=== PATIENT | female | born 1940 | race Caucasian/White ===

== ENCOUNTER → 2016-07-04 | Outpatient (CLI) | payer BC, OTHER ==
[~2016-07-04] MED LIST: AMLOD-VALSA-HC1 EAC4 PO; AMOXICILLIN875 MG PO; ATORVASTATIN CA20 MG PO; BREO ELLIPTA 11 EACH INH; CALCIUM 500-VI1 EACH PO; DULOXETINE HCL60 M1 PO; ENBREL50 MG/1 M1 SUBQ; FOLIC ACID1 MG PO; OMEPRAZOLE40 M1 PO; OXYGEN; PERCOCET 5/321 UDTAB PO; STERAPRED5 MG/DOSE1 PO; WELLBUTRIN XL150 M2 PO; XARELTO10 MG PO
--- NOTE | ~2016-07-04 | EKG ---
PATIENT: ALISSA LANDA UNIT #: [id number] Ventricular Rate: 62 BPM Atrial Rate: 62 BPM P-R Interval: 112 ms QRS Duration: 88 ms Q-T Interval: 436 ms QTC Calculation(Bezet): 442 ms P [place]: 76 degrees Calculated R [place]: 22 degrees Calculated T [place]: 65 degrees Diagnosis Line: Normal sinus rhythm Diagnosis Line: Normal ECG Diagnosis Line: No previous ECGs available Diagnosis Line: Confirmed by LORENA GODDARD MD ([id number]) on 07/06/2016 Diagnosis Line: 9:14:14 AM INTERPRETING MD: RUPESH BAILEY
[2016-07-04 16:11] LABS: BLOOD UREA NITROGEN 12 mg/dL (9-23); BUN/CREATININE RATIO 17.14; CARBON DIOXIDE 29 mmol/L (22-31); CHLORIDE 97 mmol/L (100-111); CREATININE SERUM 0.7 mg/dL (0.6-1.4); GLOM FILT RATE Estimated ABOVE60 mL/min (>60); GLUCOSE FASTING 98 mg/dL (70-110); POTASSIUM 3.3 mmol/L (3.5-5.1); SODIUM 133 mmol/L (135-145)
== END | disposition home or self-care (01) ==
LOC: CAMB 13:59
PROVIDERS: Orthopaedic Surgery
DX: Z01.818 Encounter for other preprocedural examination (principal); M06.871 Other specified rheumatoid arthritis, right ankle and foot; S92.811K Other fracture of right foot, subsequent encounter for fracture with nonunion; S93.12 Dislocation of metatarsophalangeal joint; J44.9 Chronic obstructive pulmonary disease, unspecified
CPT/HCPCS: 36415; 80048; 93005

== ENCOUNTER 2016-07-18 09:04 | Inpatient (IN) | payer BC, OTHER ==
--- NOTE | ~2016-07-18 | HP ---
Unit #: [id number] #: [id number] Patient: ALISSA LANDA [id number] [address] [address] [id number] P MR#: [id number] NAME: ALISSA LANDA ROOM: Age: 75 Sex: F Admission Date: 07/18/2016 : 1940 Attending Physician: Ivette Caicedo M.D. HISTORY AND PHYSICAL CHIEF COMPLAINT Right foot pain. HISTORY OF PRESENT ILLNESS The patient is a 75-year-old female with rheumatoid arthritis. She has had numerous operative procedures on her foot. She has prominence of the plantar medial arch under her medial cuneiform. She has pain with standing and walking. She has been using custom orthotics to help her with some of the pressure, which is only marginally successful. She also complains of pain under the first metatarsal head. She takes Enbrel for rheumatoid arthritis. Her radiographs show that she has a first metatarsal shaft nonunion as well as a severe pes planus deformity with significant clawing of the toes. The patient is admitted for triple arthrodesis first MTP joint fusion, resection of second through fourth metatarsal heads, correction of second through fifth claw toes and repair of her first metatarsal nonunion. PAST MEDICAL HISTORY 1. Rheumatoid arthritis. 2. Gastroesophageal reflux disease. 3. Hypertension. 4. Hypercholesterolemia. 5. Chronic obstructive pulmonary disease. PAST SURGICAL HISTORY Multiple foot surgeries. SOCIAL HISTORY The patient is a nonsmoker and nondrinker. She does not use illicit drugs. She works at [employer]. ALLERGIES No known drug allergies. HOME MEDICATIONS 1. Enbrel. 2. Folate. 3. Omeprazole. 4. HCTZ. 5. Amlodipine. 6. Valsartan. 7. Atorvastatin. 8. Duloxetine. 9. Bupropion. Unit #: [id number] #: [id number] Patient: ALISSA LANDA 10. Calcium citrate. 11. Breo. REVIEW OF SYSTEMS Unremarkable. PHYSICAL EXAMINATION GENERAL: The patient is a well-developed, well-nourished female in no acute distress. HEENT: Pharynx is clear. NECK: Supple without masses. LUNGS: Clear. HEART: Regular sinus rhythm without murmurs or gallops. ABDOMEN: Soft and nontender without masses or organomegaly. EXTREMITIES: Evaluation of the right foot demonstrates flattening of the arch. She has (1)____ abduction and hindfoot valgus of 20 degrees. Ankle dorsiflexion is 20 degrees, plantar flexion 40 disease, subtalar inversion 20, eversion 20, first MTP joint dorsiflexion 30, plantar flexion 0. The patient has a plantar keratosis underlying the medial cuneiform. She also has a plantar keratosis under the fourth metatarsal head plantarly as well as under the third metatarsal head. She has fixed clawing of the second through fifth toes and clawing of the hallux. Sensation is intact. Pulses are normal. Motor exam is normal. DIAGNOSTIC STUDIES IMAGING: Plain x-rays of the right foot show a first metatarsal shaft nonunion with shortening and presence of what appears to be a wire. She has significant erosions of the first through fifth metatarsal phalangeal joints with fixed rotations of the third and fourth metatarsal phalangeal joints and erosion of the fifth metatarsal head. She has 50% uncovering of the talonavicular joint. Meary's angle is -30 degrees, calcaneal pitch 13 degrees, medial cuneiform height -6 mm. ASSESSMENT 1. 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 2. Right first metatarsal nonunion. 3. Right first metatarsal intractable plantar keratosis. 4. 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 5. Right third and fourth metatarsal phalangeal joint dislocation. PLAN The patient has failed conservative care. She will, therefore, undergo right foot surgery. This will entail a triple arthrodesis, repair of the first metatarsal nonunion, first metatarsal phalangeal joint fusion, resection second through fourth metatarsal heads, repair of second through fifth claw toes. We will utilize Augment bone graft. The procedure was described along with the risks of bleeding, infection, nerve damage, need for further surgery in the future, prolonged recovery time, deep venous thrombosis, pulmonary embolism, anesthetic complications, nonunion, malunion, persistent swelling. The patient understands she will have to be nonweightbearing for three months postoperatively. Dictated by Ivette Caicedo M.D. Unit #: [id number] #: [id number] Patient: ALISSA LANDA RTH/gz TD: 07/13/2016 09:15 JOB #: [id number] CC: Ivette Caicedo M.D. HISTORY AND PHYSICAL Page 1 of 1 X Guerda Caicedo MD X HISTORY AND PHYSICAL
--- NOTE | ~2016-07-18 | CO ---
Unit #: [id number] #: [id number] Patient: ALISSA LANDA [id number] [address] [place], [place] [address] [id number] I MR#: [id number] NAME: ALISSA LANDA ROOM: [facility] Age: 75 Sex: F Admission Date: 07/18/2016 : 1940 Attending Physician: Ivette Caicedo M.D. Primary Care Physician: Janice Bal M.D. Consultation Date: 07/19/2016 CONSULTATION REPORT CONSULTING PHYSICIAN Dr. Caicedo REASON FOR CONSULT Medical management. HISTORY OF PRESENT ILLNESS Pleasant 75-year-old female with a history of rheumatoid arthritis, COPD, who follows with Dr. Godinez at [facility]. He usually wears 2 L of oxygen at night at home. Basically, he is status post arthrodesis of the right foot per Dr. Caicedo. Sometime this morning, she was somewhat hypoxic and she was given some Narcan and a chest x-ray was obtained. The patient denies any complaints at this time. was at bedside. She seems to be doing much better at this time. She is complaining of some pain in her right foot ever since she got the Narcan but, other than that, no other issues so far. REVIEW OF SYSTEMS She denies any chest pain, denies any shortness of breath per sedimentation rate but admits to pain in her right foot. PAST MEDICAL HISTORY Significant for: 1. Rheumatoid arthritis. 2. Gastroesophageal reflux disease. 3. Hypertension. 4. Hyperlipidemia. 5. COPD. PAST SURGICAL HISTORY Multiple foot surgeries in the past. SOCIAL HISTORY No tobacco use, alcohol use or illicit drug use. ALLERGIES No known drug allergies. MEDICATIONS Medications include: 1. Enbrel 50 mg subcu q. weekly. 2. Folic acid 1 mg p.o. daily. 3. Omeprazole 40 mg p.o. daily. 4. Lipitor 20 mg p.o. daily. Unit #: [id number] #: [id number] Patient: ALISSA LANDA 5. Cymbalta 60 mg p.o. daily. 6. Wellbutrin XL 150 mg p.o. daily. 7. Calcium plus D, one tablet p.o. daily. 8. Breo Ellipta 100/25, one puff inhalational twice daily. 9. Amlodipine/valsartan/hydrochlorothiazide 10/320/25, one cap p.o. daily. 10. Oxygen 2.5 L at bedtime. REVIEW OF SYSTEMS Complete ten point review of systems has been done and pertinent positives noted above in the HPI. PHYSICAL EXAMINATION GENERAL APPEARANCE: The patient is drowsy, comfortable, drifts off to sleep but easily arousable. VITAL SIGNS: Sats are 93% on about 3 L, temperature 99.0, pulse 82, respiratory rate 16, blood pressure 128/74. HEENT: Pupils were equal and reactive to light and accommodation. NECK: Supple without thyromegaly. CHEST: Mostly clear. ABDOMEN: Full, moved with respirations. Soft, nontender, nondistended. No palpable organomegaly. EXTREMITIES: Right foot dressing in place. SKIN: Warm and dry with no rashes. LYMPHATIC SYSTEM: No enlarged peripheral lymphadenopathy that I could appreciate. ASSESSMENT AND PLAN 1. Chronic obstructive pulmonary disease: This is currently stable at this time. Her episode of desaturation is probably secondary to narcotics. The patient was on a [employer] pump and this has been stopped at this time. 2. Pain management: The patient is currently being managed by Dr. Caicedo. Per my discussion with him, will continue with Percocet orally for pain as needed. She will continue to be on oxygen at this time. In light of her episode of desaturation, I would just get a set of cardiac markers. 3. Hyperlipidemia: Continue medications at this time as well as hypertension. Keep an eye on patient's blood pressure at this time. 4. Status post arthrodesis: Management as per Dr. Caicedo. Will check a CBC, BMP and set of cardiac markers. Dr. Caicedo, thanks for the opportunity to participate in the care of your patient. The patient will be on DVT prophylaxis and GI prophylaxis. Dictated by... Jian Ahumada TD: 07/19/2016 09:19 JOB #: [id number] Unit #: [id number] #: [id number] Patient: ALISSA LANDA CONSULTATION REPORT Page 1 of 1 X Josiah Diaz MD CONSULTATION REPORT
--- NOTE | ~2016-07-18 | CR71 ---
[facility] A Service of [facility] & [facility] RADIOLOGY TEXT RESULTS PATIENT: ALISSA LANDA LOCATION: [place] [address] : [birth year] UNIT #: [id number] AGE: [address]: Guerda Caicedo MD SEX: F ORDER DR: [id number] [facility] [address] [facility]. [place], [place] [address] [id number] I MR#: [id number] Acc #: [id number] NAME: ALISSA LANDA : 1940 SEX: F STUDY DATE/TIME: 07/20/2016 14:50 UNIT: [facility] ROOM: [facility] STUDY DESCRIPTION: CR Chest Single View Attending Physician: Ivette Caicedo M.D. Ordering Physician: Jorge Royal M.D. Primary Care Physician: Janice Bal M.D. MEDICAL IMAGING REPORT This report is preliminary unless electronic signature is present EXAM Chest x-ray, 07/20. HISTORY Shortness of air and cough today. History of hypertension. FINDINGS AP portable chest compared with 07/19/2016. Heart size stable. Minimal atelectasis or infiltrate in both lung bases today. There is emphysema. Lungs are otherwise clear and there no pneumothorax. There is an old right clavicle fracture. Dictated by... Ten Maloney Jr., M.D. THIS IS AN ELECTRONICALLY VERIFIED REPORT Ten Maloney Jr., M.D. at 07/21/2016 8:47 PM HANS/susie TD: 07/20/2016 16:55 JOB #: [id number] MEDICAL IMAGING REPORT Page 1 of 1 COPY
--- NOTE | ~2016-07-18 | DS ---
Unit #: [id number] #: [id number] Patient: ALISSA LANDA [id number] [address] [place], [place] [address] [id number] I MR#: [id number] NAME: ALISSA LANDA ROOM: [facility] Age: 75 Sex: F Admission Date: 07/18/2016 : 1940 Discharge Date: 07/22/2016 Attending Physician: Ivette Caicedo M.D. Primary Care Physician: Janice Bal M.D. DISCHARGE SUMMARY CHIEF COMPLAINT Right foot pain. HISTORY OF PRESENT ILLNESS This 75-year-old female with history of rheumatoid arthritis has had numerous operative procedures on her foot. She now complains of significant pain with walking and standing. She has not responded to conservative care. She has a nonunion of the first metatarsal shaft as well as significant pes planus deformity and clawing of her toes. She has erosions of the metatarsal heads and has symptomatic plantar keratosis. She is, therefore, to undergo triple arthrodesis, repair of first metatarsal nonunion, first MTP joint fusion and resection of metatarsal heads with correction of claw toes. HOSPITAL COURSE The patient was taken to the operating room on the date of admission where she underwent the above-mentioned procedures. There were no operative complications. Postoperatively, she had an exacerbation of her underlying chronic obstructive pulmonary disease. This required pulmonary consultation and IV steroids. She was also seen by Urology for urinary retention and she improved with observation only. Dressing was changed on the second postoperative day. Wounds were healing well. She remained afebrile with otherwise stable vital signs. She was seen by Physical Therapy on a daily basis and instructed on how to remain nonweightbearing on her right side. Pain was controlled with oral narcotics. She was ready for discharge on the fourth postoperative day after her COPD exacerbation improved. FINAL DIAGNOSES 1. Right foot rheumatoid arthritis. 2. Chronic obstructive pulmonary disease. 3. Urinary retention, resolved. DISPOSITION AND RECOMMENDATIONS 1. The patient is discharged home. She will remain nonweightbearing on the right foot for a total of three months. She will keep the dressing, clean, dry and intact and will continue ice and elevation. 2. Discharge medications remain the same as her home medications with the addition of Xarelto 10 mg p.o. daily for a total of two weeks postoperatively as well as Percocet 5/325 mg one or two p.o. q.4-6 hours p.r.n. Dispense 50. 3. Follow up in my office in 10 to 14 days for dressing change, suture removal, application of a cast. Pins will be left in place for four weeks. Unit #: [id number] #: [id number] Patient: ALISSA LANDA Dictated by.Jian Dobson/magy TD: 07/24/2016 06:34 JOB #: [id number] DISCHARGE SUMMARY Page 1 of 1 X Guerda Caicedo MD X DISCHARGE SUMMARY
--- NOTE | ~2016-07-18 | CR72 ---
[facility] A Service of [facility] & [facility] RADIOLOGY TEXT RESULTS PATIENT: ALISSA LANDA LOCATION: [address] 451[address]01 : [birth year] UNIT #: [id number] AGE: [address]: Guerda Caicedo MD SEX: F ORDER DR: [id number] [facility] [address] [place], [place] [address] [id number] I MR#: [id number] Acc #: [id number] NAME: ALISSA LANDA : 1940 SEX: F STUDY DATE/TIME: 07/19/2016 6:51 UNIT: [facility] ROOM: [facility] STUDY DESCRIPTION: CR Chest Single View Portable Attending Physician: Ivette Caicedo M.D. Ordering Physician: Ivette Caicedo M.D. Primary Care Physician: Janice Bal M.D. MEDICAL IMAGING REPORT This report is preliminary unless electronic signature is present EXAM Portable chest 07/19 INDICATIONS Shortness of air, hypoxia now. History of COPD and hypertension. FINDINGS AP portable chest compared with 07/04/2016. Cardiac and mediastinal contours are normal. There is emphysema. Atherosclerotic disease in the aorta. No pneumothorax. There is some mild infiltrate or atelectasis in the right lung base. Lungs are otherwise clear. IMPRESSION Emphysema with very mild right basilar infiltrate or atelectasis. Chest x-ray is otherwise negative and unchanged. Dictated by... Ten Maloney Jr., M.D. THIS IS AN ELECTRONICALLY VERIFIED REPORT Ten Maloney Jr., M.D. at 07/19/2016 3:53 PM HANS/terri TD: 07/19/2016 07:40 JOB #: [id number] MEDICAL IMAGING REPORT Page 1 of 1 COPY
--- NOTE | ~2016-07-18 | CR63 ---
[facility] A Service of [facility] & [facility] RADIOLOGY TEXT RESULTS PATIENT: ALISSA LANDA LOCATION: [facility] : [birth year] UNIT #: [id number] AGE: [address]: Guerda Caicedo MD SEX: F ORDER DR: [id number] [facility] [address] [place], [place] [address] [id number] MR#: [id number] Acc #: [id number] NAME: ALISSA LANDA : 1940 SEX: F STUDY DATE/TIME: 07/04/2016 15:22 UNIT: [facility] ROOM: STUDY DESCRIPTION: CR Chest 2 View Attending Physician: Ivette Caicedo M.D. Ordering Physician: Ivette Caicedo M.D. MEDICAL IMAGING REPORT This report is preliminary unless electronic signature is present EXAM Chest x-ray 07/04/2016 INDICATION Preop exam for foot surgery. Cough for a few days. Anesthesia requirement. Former smoker. FINDINGS 2 views of the chest were obtained. No comparison. Cardiac and mediastinal contours are normal. There is atherosclerotic disease in the aorta. The lungs are emphysematous but clear. No pneumothorax. There is an old right clavicle fracture. IMPRESSION Emphysema. No active disease. Dictated by... Ten Maloney Jr., M.D. THIS IS AN ELECTRONICALLY VERIFIED REPORT Ten Maloney Jr., M.D. at 07/05/2016 1:41 PM HANS/christa TD: 07/05/2016 10:05 JOB #: [id number] MEDICAL IMAGING REPORT Page 1 of 1 COPY
--- NOTE | ~2016-07-18 | OR ---
Unit #: [id number] #: [id number] Patient: ALISSA LANDA [id number] [address] [place], [place] [address] [id number] MR#: [id number] NAME: ALISSA LANDA ROOM: [facility] Date of Procedure: 07/18/2016 Admission Date: 07/18/2016 Surgeon: Ivette Caicedo M.D. : 1940 Attending Physician: Ivette Caicedo M.D. Primary Care Physician: Janice Bal M.D. OPERATIVE REPORT PREOPERATIVE DIAGNOSES 1. Right foot rheumatoid pes abducto planovalgus. 2. Right second through fifth claw toes. 3. Right second and third metatarsophalangeal joint dorsal dislocations. 4. 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 5. Right first metatarsophalangeal joint rheumatoid arthritis. POSTOPERATIVE DIAGNOSES 1. Right foot rheumatoid pes abducto planovalgus. 2. Right second through fifth claw toes. 3. Right second and third metatarsophalangeal joint dorsal dislocations. 4. 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 5. Right first metatarsophalangeal joint rheumatoid arthritis. PROCEDURES PERFORMED 1. Right foot triple arthrodesis (37260). 2. Right second, third, and fourth metatarsal head resections (20083). 3. Right first metatarsal nonunion repair with autogenous bone graft (16989). 4. Right first metatarsophalangeal joint fusion (32841). 5. Right second through fifth claw toe corrections with proximal interphalangeal joint fusion and pinning of toes in corrected position (64270). 6. Right tibial sesamoidectomy (38901). 7. Right foot hardware removal (61227). ASSISTANTS Geovanna and Francisco. ANESTHESIA Popliteal saphenous block and general. INDICATIONS FOR SURGERY A 74-year-old female with rheumatoid arthritis, who presents with a symptomatic pes abducto planovalgus deformity secondary to rheumatoid arthritis. She has significant forefoot arthritis with dislocations of the third and fourth metatarsophalangeal joints. She has fixed claw toe deformities of all toes. She has significant arthritis of the first MTP joint with hallux valgus. She has undergone previous attempted right first MTP joint surgery with resultant nonunion and retained hardware. The patient has symptomatic plantar keratosis in the forefoot as well as Unit #: [id number] #: [id number] Patient: CORDELL,ALISSA significant pain in the hindfoot with walking and standing. She also has pain under the prominent medial cuneiform plantarly. The patient has failed nonoperative care with orthotics, bracing, medications, modification of activity. She desires surgical correction. She has failed nonoperative care. DESCRIPTION OF PROCEDURE The patient was taken to the operating room and placed in supine position and general anesthetic was induced. Popliteal saphenous block was performed preoperatively in the anesthesia holding area. The right foot was identified as the correct operative extremity during the time-out procedure. The IV antibiotic protocol was followed. The right foot and leg were then prepped and draped in the usual sterile fashion. The leg was exsanguinated and the thigh tourniquet was inflated to 300 mmHg. A longitudinal incision was made over the sinus tarsi ending at the fourth metatarsal base. Subcutaneous tissue was carefully divided. The subtalar joint was exposed with subperiosteal dissection. The contents of the sinus tarsi were excised. The joint was distracted with a laminar heel emery buffer. The power osteotome, curved curettes, and rongeurs were utilized to remove the articular cartilage from both sides of the subtalar joint. The underlying subchondral bone was feathered. All three facets were dressed. The FHL tendon was identified and preserved. The calcaneocuboid joint was exposed with subperiosteal dissection. The articular cartilage was removed from both sides of this joint using a power osteotome, curved curettes, and rongeurs. The underlying subchondral bone was feathered with the power osteotome. A 6 cm dorsal medial incision was made over the midfoot. Subcutaneous tissue was divided. The talonavicular joint capsule was opened. The talonavicular joint was identified. The power osteotome, curved curettes, and rongeurs were then utilized to remove the articular cartilage from both sides of the joint. The underlying subchondral bone was feathered with the power osteotome. 3 mL of Augmented Pixels CO augment platelet-derived growth factor. Calcium phosphate granules were then placed and divided equally between the three joints. Care was taken to spread the growth factor evenly. The subtalar joint was then held in corrected position and then fixated with a 7.0 mm diameter partially threaded cannulated screw from OrthoHelix placed from the posterior inferior heel into the talar neck. The talonavicular joint was then reduced and fixated from distal to proximal with a 5.5 mm diameter cannulated OrthoHelix screw. The calcaneocuboid joint was then fixated with a distal to proximal 5.5 mm diameter cannulated OrthoHelix screw. Excellent correction was achieved and documented by x-ray. A dorsal longitudinal incision was made over the third metatarsophalangeal joint and shaft. The subcutaneous tissue was divided. The third metatarsophalangeal joint was exposed and the third metatarsal head was identified and presented into the wound utilizing baby Hohmann retractors. The microsagittal saw was then used to cut the eroded third metatarsal head. This was removed to be saved for bone graft later in the case. In a similar fashion, the second and fourth metatarsal heads were exposed. The microsagittal saw was used to cut the second and fourth metatarsal necks. The second and fourth metatarsal heads were then removed. Dorsal, transverse, elliptical incisions were then made over the second, third, and fifth toes. The microsagittal saw was used to remove the Unit #: [id number] #: [id number] Patient: ALISSA LANDA distal 3 mm of bone and cartilage from the proximal phalanges and a rongeur was used to remove the articular cartilage from the bases of the middle phalanges. A longitudinal incision was made over the fourth toe proximal interphalangeal joint, because there was a significant deformity and malunion of the distal end of the proximal phalanx. The microsagittal saw was then used to remove the articular cartilage from the distal end of the fourth toe proximal phalanx. The articular cartilage of the middle phalangeal base was removed with the rongeur. 0.054 K-wires were then drilled through the middle of the middle phalanges of the second through fifth toes and out of the tips of the toes. The pins were then reversed across the proximal interphalangeal joint and then guided carefully into intramedullary canals of the second through fifth metatarsals. Excellent stabilization was achieved. Jurgan balls were placed and the pins were cut to appropriate length. The old scar over the dorsal medial hallux was utilized for the first MTP joint fusion. This was opened approximately 7 cm. The subcutaneous tissue was divided. The first metatarsophalangeal joint capsule was divided longitudinally and reflected off the first metatarsal head and proximal phalangeal base. The nonunion was then identified and the microsagittal saw was used to freshen both sides of the nonunion site. All fibrinous material was removed. The K-wire was then used to drill both sides of the nonunion site. The microsagittal saw was used to remove the articular cartilage from the first metatarsal head. The subchondral bone of the first metatarsal head was drilled multiple times with a K-wire. The K-wire was then used to drill around the periphery of the proximal phalangeal base. These holes were connected with a small osteotome and the articular cartilaginous surface was lifted away. The attached cancellous subchondral bone was removed with a rongeur and then morselized to be utilized for bone graft for the nonunion site. The nonunion site was then bone grafted and the first MTP joint and nonunion site were provisionally fixated with two crossed K-wires. Intraoperative C-arm fluoroscopy and simulated weightbearing showed satisfactory toe position. An OrthoHelix Mini MaxTorque screw was placed from distal to proximal beginning at the medial aspect of the proximal phalangeal base and this was advanced across the first MTP joint into the first metatarsal head across the nonunion site of the purchase the first metatarsal midshaft. A long OrthoHelix plate was then applied dorsally and fixated with multiple 2.7 mm diameter nonlocking screws. Three screws were placed in the proximal phalanx and three screws were placed in the first metatarsal shaft. Excellent fixation was achieved. The tourniquet was released with total tourniquet time of 2 hours and 20 minutes. Bleeding was controlled with electrocautery. The first MTP joint capsule was closed with 2-0 Vicryl [id number] sutures. Subcutaneous tissue was closed with 3-0 Vicryl. Skin was closed with 3-0 nylon horizontal mattress sutures. Xeroform gauze, dressing, sponges, Webril, posterior fiberglass splint, and Daniel wraps were applied. The patient was then transported to the recovery room in stable condition. ESTIMATED BLOOD LOSS 100 mL. COMPLICATIONS Unit #: [id number] #: [id number] Patient: ALISSA LANDA None. SPECIMENS None. TOURNIQUET TIME 2 hours 20 minutes. Dictated by.Jian Dobson/peterson TD: 07/19/2016 03:14 JOB #: [id number] OPERATIVE REPORT Page 1 of 1 X Guerda Caicedo MD X PROCEDURE OPERATIVE NOTE
--- NOTE | ~2016-07-18 | CO ---
Unit #: [id number] #: [id number] Patient: ALISSA AGUAYO [id number] [facility]. [place], [place] [address] [id number] I MR#: [id number] NAME: ALISSA AGUAYO ROOM: [facility] Age: 75 Sex: F Admission Date: 07/18/2016 : 1940 Attending Physician: Ivette Caicedo M.D. Primary Care Physician: Janice Bal M.D. CONSULTATION REPORT HISTORY OF PRESENT ILLNESS Ms. Aguayo is a 75-year-old white female followed by Dr. Godinez at [facility] for COPD and chronic respiratory failure. She underwent foot surgery here on 07/18/[address] Caicedo. She developed some hypoxemia through the night. They turned off her pain pump and gave her some Narcan with improvement in oxygenation. Chest x-ray was done which showed a new area of infiltrate or atelectasis in the right base. She said she had a cough with some congestion preoperatively but was treated with steroids and antibiotic with a little improvement. She has not been febrile. She is not coughing up much in the way of sputum. She denies any chest pain. She has no history of venous thromboembolism. I believe she is getting Xarelto for DVT prophylaxis. PAST MEDICAL HISTORY Significant for: 1. COPD. 2. Chronic respiratory failure maintained on approximately 2.5 liters. 3. History of rheumatoid arthritis. 4. No known history of interstitial lung disease. 5. History of gastroesophageal reflux. 6. Hypertension. 7. Hyperlipidemia. PAST SURGICAL HISTORY Multiple foot surgeries. HOME MEDICATIONS 1. Enbrel. 2. Folic acid. 3. Prilosec. 4. Lipitor. 5. Cymbalta. 6. Wellbutrin. 7. Calcium plus D. 8. Advair. 9. Norvasc, valsartan, hydrochlorothiazide 10/320/25. 10. Home O2 at 2.5 liters. ALLERGIES No known drug allergies. SOCIAL HISTORY No current tobacco use. No alcohol. No illicit drugs. Works at [employer]. Unit #: [id number] #: [id number] Patient: ALISSA AGUAYO REVIEW OF SYSTEMS Otherwise, negative. PHYSICAL EXAMINATION VITAL SIGNS: Blood pressure 102/60, pulse 77, respiratory rate 17, afebrile. GENERAL: White female, mildly short of breath, no distress. She is awake, alert, oriented x3. Moves all extremities symmetrically. HEENT: Normocephalic, atraumatic. Pupils equal, round, reactive. Sclerae anicteric. Nasal passages patent. Posterior pharynx clear. Mucous membranes are moist. NECK: Supple, trachea midline. No cervical or supraclavicular lymphadenopathy. LUNGS: Prolonged expiratory phase, mild expiratory wheeze with scattered expiratory rhonchi. HEART: Regular rate and rhythm. 2/6 systolic murmur. ABDOMEN: Nontender. Bowel sounds are present. EXTREMITIES: Without clubbing, cyanosis, or edema. Right leg and foot wrapped. SKIN: Warm and dry. PSYCHIATRIC: Affect calm. DIAGNOSTIC STUDIES LABORATORY: BMP reviewed. Sodium 133, creatinine 0.6, CO2 is 26. Cardiac enzymes were negative. White count 11,600, hematocrit 28.2. IMAGING: Chest x-ray personally reviewed, as noted. IMPRESSION 1. Acute and chronic hypoxemic respiratory failure. 2. Chronic obstructive pulmonary disease exacerbation. 3. Postop right foot. 4. Rheumatoid arthritis. 5. Right lower lobe atelectasis or infiltrate. PLAN 1. Would recommend intensifying bronchodilator and inhaled corticosteroid treatment with changing from Dulera to Perforomist and Pulmicort. Will continue short-acting bronchodilators with DuoNeb. 2. Will give brief steroid burst. 3. Will increase O2 to keep saturations greater than 90% and check arterial blood gases to rule out any hypercarbia. 4. Would recommend discontinuation of pain pump as this seems to be suppressing respirations and causing more hypoxia. 5. Will obtain repeat chest x-ray to see if there is a change in development of a pneumonia. Will initiate Rocephin empirically. 6. Will make further recommendations pending this. Dictated by... Jorge Royal M.D. Unit #: [id number] #: [id number] Patient: ALISSA AGUAYO ELVER/deandra TD: 07/20/2016 17:10 JOB #: [id number] CONSULTATION REPORT Page 1 of 1 X Jorge Royal MD CONSULTATION REPORT
--- NOTE | ~2016-07-18 | CO ---
Unit #: [id number] #: [id number] Patient: ALISSA LANDA [id number] [address] [place], [place] [address] [id number] I MR#: [id number] NAME: ALISSA LANDA ROOM: [facility] Age: 75 Sex: F Admission Date: 07/18/2016 : 1940 Attending Physician: Ivette Caicedo M.D. Primary Care Physician: Janice Bal M.D. Consultation Date: 07/20/2016 CONSULTATION REPORT REASON FOR CONSULTATION Postoperative voiding difficulty. HISTORY OF PRESENT ILLNESS This 75-year-old woman underwent extensive orthopedic surgery on her right foot. She was noted to be having severe voiding difficulty and near urinary retention this morning. She fortunately has improved throughout the day, initially on a straight catheterization regimen and is voiding 200 mL easily at the time. She has no remaining voiding symptoms. She earlier had hypoxia from her narcotics and this was likely a contributing factor as well as ongoing pain and other medications. She denies any prior urologic history or symptoms. She on close questioning has occasional hesitancy and slow emptying at night, but has no daytime symptoms. She has no history of urinary tract infection, gross hematuria, or stone disease. CLAIM CLERK HISTORY Pertinent for partial hysterectomy and oophorectomy for tumor prior to bearing her 3 children. PAST MEDICAL HISTORY Includes COPD, hypertension, hypercholesterolemia, GERD, and rheumatoid arthritis. PAST SURGICAL HISTORY Multiple foot surgeries. HOME MEDICATIONS Enbrel, folate, omeprazole, hydrochlorothiazide, amlodipine, valsartan, atorvastatin, duloxetine, bupropion, calcium, and Bero. She has Xarelto and Percocet for discharge. She has been started on Rocephin for pulmonary infiltrate. ALLERGIES None known. FAMILY HISTORY Noncontributory. SOCIAL HISTORY No current tobacco or alcohol use. Unit #: [id number] #: [id number] Patient: ALISSA LANDA REVIEW OF SYSTEMS Pertinent for the above. PHYSICAL EXAMINATION GENERAL: The patient is awake, alert with audible rales. ABDOMEN: Soft, nontender. Bladder mildly distended, but she says she is about to avoid. DIAGNOSTIC STUDIES LABORATORY RESULTS: Creatinine 0.6. IMPRESSION 1. Postoperative voiding symptoms multifactorial, resolved. 2. For home medications duloxetine may affect her voiding function. PLAN She is reassured. She will see me again on as needed. Thank you for the consult Dr. Rolon. Dictated by... Ten Camarena M.D. TIGRE/peterson TD: 07/21/2016 00:16 JOB #: [id number] CC: Jian Shrestha M.D. CONSULTATION REPORT Page 1 of 1 X Ten Camarena MD X CONSULTATION REPORT
[~2016-07-18 09:04] MED LIST changes: -PERCOCET 5/321 UDTAB PO; -XARELTO10 MG PO
[2016-07-19 03:02] LABS: HEMATOCRIT 32.4 % (35.0-45.0); HEMOGLOBIN 10.7 gm/dL (12.0-16.0)
[2016-07-19 09:28] LABS: HEMATOCRIT 32.6 % (35.0-45.0); HEMOGLOBIN 10.7 gm/dL (12.0-16.0); MEAN CELL VOLUME 85.9 FL (83-96); MEAN CORPUSCULAR HEMOGLOBIN 28.2 PG (28-34); MEAN CORPUSCULAR HGB CONC 32.8 g/dL (30-36); MEAN PLATELET VOLUME 8.6 FL (6.5-11.5); RED BLOOD COUNT 3.79 X10e (3.90-5.30); RED CELL DISTRIBUTION WIDTH 13.6 % (11.0-15.5); WHITE BLOOD COUNT 10.4 X10e3 (4.0-10.5)
[2016-07-19 10:11] LABS: BUN/CREATININE RATIO 16.66; CALCIUM SERUM 7.9 mg/dL (8.4-10.2); CREATININE SERUM 0.6 mg/dL (0.6-1.4); GLOM FILT RATE Estimated 89.8 mL/min (>60); POTASSIUM 3.1 mmol/L (3.5-5.1)
[2016-07-19 10:40] LABS: %MB 2.6 % (0.0-4.0); MB 5.3 ng/ml
[2016-07-20 02:37] LABS: HEMATOCRIT 28.2 % (35.0-45.0); HEMOGLOBIN 9.5 gm/dL (12.0-16.0); MEAN CORPUSCULAR HEMOGLOBIN 28.5 PG (28-34); MEAN CORPUSCULAR HGB CONC 33.5 g/dL (30-36); MEAN PLATELET VOLUME 9.6 FL (6.5-11.5); RED BLOOD COUNT 3.32 X10e (3.90-5.30); RED CELL DISTRIBUTION WIDTH 13.1 % (11.0-15.5); WHITE BLOOD COUNT 11.6 X10e3 (4.0-10.5)
[2016-07-20 03:01] LABS: BUN/CREATININE RATIO 16.66; CALCIUM SERUM 8.2 mg/dL (8.4-10.2); CREATININE SERUM 0.6 mg/dL (0.6-1.4); GLOM FILT RATE Estimated 89.8 mL/min (>60); MAGNESIUM 1.4 mg/dL (1.6-3.0); POTASSIUM 3.2 mmol/L (3.5-5.1)
[2016-07-20 15:05] LABS: ARTERIAL BLD GAS O2 SATURATION 90.1 % (90.0-100.0); ARTERIAL BLOOD GAS CARBOXY HB 0.7 %sat (0.0-9.0); ARTERIAL BLOOD GAS HCO3 27.7 mmol/L; ARTERIAL BLOOD GAS PCO2 47.7 mmHg (35.0-45.0); ARTERIAL BLOOD GAS pH 7.373 (7.350-7.450)
[2016-07-20 15:07] LABS: ARTERIAL BLOOD GAS PO2 61.6 mmHg (80.0-100); ARTERIAL DRAW? YES
[2016-07-20 15:08] LABS: ARTERIAL BLOOD GAS ALLEN TEST NORMAL; ARTERIAL BLOOD GAS ART SITE RIGHT BRACHIAL; ARTERIAL BLOOD GAS DELIVERY NASAL CANNULA
[2016-07-21 03:17] LABS: CALCIUM SERUM 8.4 mg/dL (8.4-10.2); CREATININE SERUM 0.5 mg/dL (0.6-1.4); GLOM FILT RATE Estimated 95.4 mL/min (>60); MAGNESIUM 1.9 mg/dL (1.6-3.0); POTASSIUM 4.1 mmol/L (3.5-5.1)
[2016-07-22] MEDS ORDERED: PERCOCET 5/321 UDTAB PO (10:56)
[2016-07-22] MEDS ORDERED: XARELTO10 MG PO (10:57)
== END 2016-07-22 12:15 | disposition home health service (06) | DRG 503 ==
LOC: CSUR 09:04 → CPACUOF 16:30 → C4B 20:22 → C4C 07-21 17:15
PROVIDERS: Family Medicine; Internal Medicine; Nurse Practitioner; Orthopaedic Surgery
PROC: 0QBN0ZZ Excision of Right Metatarsal, Open Approach (ICD-10-PCS; 2016-07-18)
PROC: 0SPH04Z Removal of Internal Fixation Device from Right Tarsal Joint, Open Approach (ICD-10-PCS; 2016-07-18)
PROC: 0SGP04Z Fusion of Right Toe Phalangeal Joint with Internal Fixation Device, Open Approach (ICD-10-PCS; 2016-07-18)
PROC: 0SGP04Z Fusion of Right Toe Phalangeal Joint with Internal Fixation Device, Open Approach (ICD-10-PCS; 2016-07-18)
PROC: 0SGP04Z Fusion of Right Toe Phalangeal Joint with Internal Fixation Device, Open Approach (ICD-10-PCS; 2016-07-18)
PROC: 0SGH04Z Fusion of Right Tarsal Joint with Internal Fixation Device, Open Approach (ICD-10-PCS; principal; 2016-07-18 11:30)
PROC: 0SGH04Z Fusion of Right Tarsal Joint with Internal Fixation Device, Open Approach (ICD-10-PCS; 2016-07-18 11:30)
PROC: 0SGH04Z Fusion of Right Tarsal Joint with Internal Fixation Device, Open Approach (ICD-10-PCS; 2016-07-18 11:30)
PROC: 0SGM07Z Fusion of Right Metatarsal-Phalangeal Joint with Autologous Tissue Substitute, Open Approach (ICD-10-PCS; 2016-07-18 11:30)
PROC: 0QBN0ZZ Excision of Right Metatarsal, Open Approach (ICD-10-PCS; 2016-07-18 11:30)
PROC: 0SGP04Z Fusion of Right Toe Phalangeal Joint with Internal Fixation Device, Open Approach (ICD-10-PCS; 2016-07-18 11:30)
DX: M06.9 Rheumatoid arthritis, unspecified (principal); J96.21 Acute and chronic respiratory failure with hypoxia; Z99.81 Dependence on supplemental oxygen; J44.1 Chronic obstructive pulmonary disease with (acute) exacerbation; E87.1 Hypo-osmolality and hyponatremia; J98.11 Atelectasis; M21.41 Flat foot [pes planus] (acquired), right foot; M20.5X1 Other deformities of toe(s) (acquired), right foot; S92.311A Displaced fracture of first metatarsal bone, right foot, initial encounter for closed fracture; K21.9 Gastro-esophageal reflux disease without esophagitis; I10 Essential (primary) hypertension; E78.00 Pure hypercholesterolemia, unspecified; E78.5 Hyperlipidemia, unspecified; R33.9 Retention of urine, unspecified; N99.89 Other postprocedural complications and disorders of genitourinary system; E87.6 Hypokalemia; E83.42 Hypomagnesemia
CPT/HCPCS: 36600; 71010; 71020; 80048; 82550; 82553; 82803; 83735; 84132; 84484; 85014; 85018; 85027; 94640; 94760; 94762; 97116; 97161; 97530; C1713; G0238; G8978-GP; G8979-GP; J0330; J0690; J0696; J2250; J2270; J2310; J2405; J2550; J2795; J2920; J3010; J3475